=== PATIENT | female | born 1970 | race Caucasian/White ===

== ENCOUNTER 2023-09-22 16:11 | Observation (INO) ==
[2023-09-22] MEDS: Heparin 5000 UNITS/ML 1 mL VIAL IV SCH (17:42)
[2023-09-22] MEDS: Heparin DRIP 25,000 UNITS BAG 25,000 UNITS/250 ML BAG IV SCH ×2 (17:49→17:59)
[2023-09-22 17:54] LABS: ABS Basophils 0.1 10^3/uL (0.0-0.1); ABS Eosinophils 0.2 10^3/uL (0.0-0.5); ABS Lymphocytes 3.2 10^3/uL (1.0-4.8); ABS Monocytes 0.7 10^3/uL (0.0-0.9); ABS Neutrophils 8.9 10^3/uL (1.5-7.6); Eosinophil % 1.3 %; Hematocrit 34.5 % (35-45); Hemoglobin 11.2 g/dL (11.5-14.3); Lymphocyte % 24.5 %; Mean Corpuscular Hemoglobin 28.1 pg (27-33); Mean Corpuscular Hgb Conc 32.5 g/dL (31-36); Mean Corpuscular Volume 86.5 fL (80-97); Mean Platelet Volume 6.9 fL (7.5-11.2); Platelet Count 538 10^3/uL (150-450); Red Blood Count 3.99 10^6/uL (3.63-4.92); Red Cell Distribution Width 13.5 % (12-17); White Blood Count 13.1 10^3/uL (3.8-11.8)
[2023-09-22 18:10] LABS: Albumin 3.6 g/dL (3.2-5.2); Albumin/Globulin Ratio 1.4 (1-3); Calcium 8.5 mg/dL (8.6-10.3); Creatinine, Serum 1.65 mg/dL (0.51-0.95); Globulin 2.5 g/dL (2-4); Potassium 4.5 mmol/L (3.5-5.0); Total Bilirubin 0.2 mg/dL (0.2-1.0); Total Protein 6.1 g/dL (6.4-8.9); eGFR CKD-EPI 37.2 (>60)
[2023-09-22] MEDS ORDERED: Nicotine GUM 2MG FRUIT FLAVOR PO PRN (23:34)
[2023-09-23 06:35] LABS: ABS Basophils 0.1 10^3/uL (0.0-0.1); ABS Eosinophils 0.4 10^3/uL (0.0-0.5); ABS Lymphocytes 4.9 10^3/uL (1.0-4.8); ABS Monocytes 1.1 10^3/uL (0.0-0.9); ABS Neutrophils 6.6 10^3/uL (1.5-7.6); Hematocrit 35.9 % (35-45); Hemoglobin 11.7 g/dL (11.5-14.3); Lymphocyte % 37.7 %; Mean Corpuscular Hemoglobin 28.3 pg (27-33); Mean Corpuscular Hgb Conc 32.6 g/dL (31-36); Mean Platelet Volume 6.9 fL (7.5-11.2); Platelet Count 541 10^3/uL (150-450); Red Blood Count 4.13 10^6/uL (3.63-4.92); Red Cell Distribution Width 13.7 % (12-17); White Blood Count 13.1 10^3/uL (3.8-11.8)
[2023-09-23 10:32] VITALS: BP 136/62
[2023-09-23 10:58] LABS: Calcium 8.7 mg/dL (8.6-10.3); Creatinine, Serum 1.78 mg/dL (0.51-0.95); Potassium 4.7 mmol/L (3.5-5.0); eGFR CKD-EPI 33.9 (>60)
== END 2023-09-23 14:10 | disposition home or self-care (01) ==
LOC: EDSEX 16:11 → ED 16:11 → EDHOLD 16:11 → SUATTDRO 17:01 → EDHOLD 22:50 → MEDTELE 23:17
PROVIDERS: ADMIT Internal Medicine; ATTEND Internal Medicine